=== PATIENT | female | born 1975 | race Caucasian/White ===

== ENCOUNTER 2024-08-26 16:04 | Emergency (ER) | payer MEDICAID, SELFPAY ==
[2024-08-26] VITALS (16 sets, daily range): BP systolic 145–263; BP diastolic 87–134; PULSE 81–96; RESP 13–27; TEMP 36.6–36.7; O2SAT 89–99; BMI 32.5
--- NOTE | 2024-08-26 16:11 | HMH.EDGENADL ---
Discharge Plan Disposition Patient Disposition: Home, Self-Care Prescriptions Prescriptions: No Action albuterol sulfate 1.25 mg/3 mL solution for nebulization 1.25 mg inhalation Q4-6H PRN albuterol sulfate [Ventolin HFA] 90 mcg/actuation HFA aerosol inhaler 2 puff inhalation Q6H PRN loratadine 10 mg tablet 10 mg PO DAILY Trelegy Ellipta 100-62.5-25 mcg blister with device 1 inh inhalation DAILY losartan 25 mg tablet 25 mg PO DAILY Qty: 30 2RF Referrals Follow up/Referrals: Mae De La Cruz APRN [Primary Care Provider] - See instructions Franklin Polanco MD [Staff Physician] - See instructions Activity Restrictions/Add. Instructions Additional Instructions/Restrictions: Please follow-up with the cardiology clinic tomorrow at 2 PM. If you have any new or worsening signs or symptoms return to the ER as needed. Clinical Impressions Clinical Impression: Hypertension, uncontrolled Print Language Print Language: [place] Discharge ED Provider: Severino Sherwood General Adult HPI <JESÚS Avila - Last Filed: 08/26/24 18:32> General Chief complaint: Recheck/Abnormal Lab/Rx Stated complaint: blood pressure high Doctor sent her Time Seen by Provider: 08/26/24 16:10 History of Present Illness HPI narrative: Patient presents from primary care provider for evaluation of high blood pressure. Patient had a follow-up appointment with her PCP today for breathing problems and it was noted that her blood pressure was high. Her PCP sent her to the ER for evaluation. Patient herself is asymptomatic she has no chest pain no shortness of breath no fever chills hemoptysis hematochezia melena nausea vomit diarrhea. She is not currently on a blood pressure medicine regimen Related Data Home Medications ?Medication ?Instructions ?Recorded ?Confirmed albuterol sulfate 1.25 mg/3 mL 1.25 mg inhalation Q4-6H PRN 08/27/24 08/27/24 solution for nebulization albuterol sulfate 90 mcg/actuation 2 puff inhalation Q6H PRN 08/27/24 08/27/24 aerosol inhaler (Ventolin HFA) fluticasone fur. 100 mcg-umeclid 1 inh inhalation DAILY 08/27/24 08/27/24 62.5 mcg-vilant 25 mcg inhalat.powder (Trelegy Ellipta) loratadine 10 mg tablet 10 mg PO DAILY 08/27/24 08/27/24 Previous Rx's ?Medication ?Instructions ?Recorded losartan 25 mg tablet 25 mg PO DAILY #30 tabs 08/27/24 Allergies Allergy/AdvReac Type Severity Reaction Status Date / Time No Known Allergies Allergy Verified 08/27/24 14:29 PFS <JESÚS Avila - Last Filed: 08/26/24 18:32> [facility] Disclaimer: The information contained in this section may have been updated after the patient was seen, as this information can be updated by other users. Medical History (Updated 08/27/24 @ 14:43 by Andrew Mart RN) Edema Dyspnea Social History Smoking Status: Current every day smoker alcohol intake: never current occupational status: employed Travel in the last 8 weeks: None Have you lived/traveled outside [place] in past 30 days?: No Contact w/someone who lives/traveled outside US past 30 days?: No Exposure to someone with infectious disease in past 14 days?: No Do you have a fever (greater than 100.4 F or 38 C)?: No Have you tested positive for COVID-19: No Exposed to someone with COVID-19 in past 14 days?: No Do you have a sore throat?: No Do you have a cough?: No Do you have any weakness?: No Do you have any diarrhea?: No Are you experiencing any unusual bleeding?: No Do you have any muscle aches/pain?: No Do you have any abdominal pain?: No Are you experiencing loss of taste or smell?: No <JESÚS Avila - Last Filed: 08/26/24 18:32> ROS Obtained: Yes Systems reviewed as appropriate & no additional complaints except as documented Physical Exam <JESÚS Avila - Last Filed: 08/26/24 18:32> General General appearance: alert and in no apparent distress Respiratory Respiratory exam: Present normal lung sounds bilaterally Cardiovascular Cardiovascular exam: Present regular rate Neurological Exam Neurological exam: Present alert and oriented X3 Medical Decision Making <JESÚS Avila - Last Filed: 08/26/24 18:32> Medical Records Medical records reviewed: Yes I reviewed the patient's medical records. Screening: Per USPSTF and CDC recommendations, given the prevalence of disease in our region, it is our hospital?s policy to screen for HIV and viral Hepatitis for all patients aged 18 and over and those with ongoing risk factors. Gurvinder Inquiry Pt receiving controlled substance: No Vital Signs: 08/26/24 16:20 08/26/24 16:22 08/26/24 16:30 Temperature 97.9 F Temperature Source Oral Pulse Rate 85 91 H Pulse Rate [Radial] 92 H Respiratory Rate 16 18 Blood Pressure Blood Pressure [Right Arm] 263/133 H Blood Pressure Mean Blood Pressure Mean [Right Arm] 176 Blood Pressure Source Blood Pressure Source [Right Arm] Automatic Cuff Blood Pressure Position Blood Pressure Position [Right Arm] Sitting 02 Sat by Pulse Oximetry 98 97 97 Oxygen Delivery Method Room Air 08/26/24 16:31 08/26/24 16:31 08/26/24 16:45 Temperature Temperature Source Pulse Rate 88 84 Pulse Rate [Radial] Respiratory Rate 14 24 Blood Pressure 249/134 H Blood Pressure [Right Arm] Blood Pressure Mean 152 Blood Pressure Mean [Right Arm] Blood Pressure Source Blood Pressure Source [Right Arm] Blood Pressure Position Blood Pressure Position [Right Arm] 02 Sat by Pulse Oximetry 97 95 Oxygen Delivery Method 08/26/24 17:00 08/26/24 17:01 08/26/24 17:01 Temperature Temperature Source Pulse Rate 82 82 Pulse Rate [Radial] Respiratory Rate 13 19 Blood Pressure 243/105 H Blood Pressure [Right Arm] Blood Pressure Mean 150 Blood Pressure Mean [Right Arm] Blood Pressure Source Blood Pressure Source [Right Arm] Blood Pressure Position Blood Pressure Position [Right Arm] 02 Sat by Pulse Oximetry 94 L 95 Oxygen Delivery Method 08/26/24 17:15 08/26/24 17:33 08/26/24 17:36 Temperature Temperature Source Pulse Rate 81 92 H 96 H Pulse Rate [Radial] Respiratory Rate 16 26 H 27 H Blood Pressure Blood Pressure [Right Arm] Blood Pressure Mean Blood Pressure Mean [Right Arm] Blood Pressure Source Blood Pressure Source [Right Arm] Blood Pressure Position Blood Pressure Position [Right Arm] 02 Sat by Pulse Oximetry 95 89 L 96 Oxygen Delivery Method 08/26/24 17:36 08/26/24 17:41 08/26/24 17:41 Temperature Temperature Source Pulse Rate 89 Pulse Rate [Radial] Respiratory Rate 20 Blood Pressure 236/126 H 262/121 H Blood Pressure [Right Arm] Blood Pressure Mean 139 160 Blood Pressure Mean [Right Arm] Blood Pressure Source Blood Pressure Source [Right Arm] Blood Pressure Position Blood Pressure Position [Right Arm] 02 Sat by Pulse Oximetry 95 Oxygen Delivery Method 08/26/24 17:45 08/26/24 18:00 08/26/24 18:01 Temperature Temperature Source Pulse Rate 90 89 86 Pulse Rate [Radial] Respiratory Rate 19 19 17 Blood Pressure Blood Pressure [Right Arm] Blood Pressure Mean Blood Pressure Mean [Right Arm] Blood Pressure Source Blood Pressure Source [Right Arm] Blood Pressure Position Blood Pressure Position [Right Arm] 02 Sat by Pulse Oximetry 95 96 96 Oxygen Delivery Method 08/26/24 18:01 08/26/24 18:30 08/26/24 19:03 Temperature 98.0 F Temperature Source Oral Pulse Rate 84 94 H Pulse Rate [Radial] Respiratory Rate 20 16 Blood Pressure 200/129 H 200/129 H 145/87 H Blood Pressure [Right Arm] Blood Pressure Mean 152 Blood Pressure Mean [Right Arm] Blood Pressure Source Automatic Cuff Blood Pressure Source [Right Arm] Blood Pressure Position Sitting Blood Pressure Position [Right Arm] 02 Sat by Pulse Oximetry 93 L Oxygen Delivery Method Room Air 08/26/24 19:03 Temperature 98.0 F Temperature Source Oral Pulse Rate Pulse Rate [Radial] 94 H Respiratory Rate 16 Blood Pressure Blood Pressure [Right Arm] 145/87 H Blood Pressure Mean Blood Pressure Mean [Right Arm] 106 Blood Pressure Source Blood Pressure Source [Right Arm] Automatic Cuff Blood Pressure Position Blood Pressure Position [Right Arm] Sitting 02 Sat by Pulse Oximetry 99 Oxygen Delivery Method Room Air Lab Data Lab results reviewed: Yes I reviewed the patient's lab results. Lab Results 08/26/24 16:36: WBC 8.4, RBC 4.66, Hgb 9.7 L, Hct 32.8 L, MCV 70.4 L, MCH 20.8 L, MCHC 29.6 L, RDW 18.1 H, Plt Count 427 H, MPV 8.3, Neut % (Auto) 82.8 H, Lymph % (Auto) 11.3, [place] % (Auto) 3.8, Eos % (Auto) 1.3, Baso % (Auto) 0.6, Neut # (Auto) 7.0, Lymph # (Auto) 1.0, [place] # (Auto) 0.3, Eos # (Auto) 0.1, Baso # (Auto) 0.1, Sodium 139, Potassium 4.2, Chloride 105, Carbon Dioxide 26, Anion Gap 12.2, BUN 12, Creatinine 0.70, Estimated Creat Clear 173, Estimated GFR 90, Est GFR ( Amer) 109, Glucose 96, Calcium 8.9, Total Bilirubin 0.4, AST 20, ALT 16, Alkaline Phosphatase 81, Troponin I < 0.01, NT-Pro-B Natriuret Pep 1410 H, Total Protein 7.7, Albumin 4.1, Globulin 3.6 H, Albumin/Globulin Ratio 1.1 08/26/24 17:36: Urine Color Yellow, Urine Appearance Clear, Urine pH 7.0, Ur Specific [place] 1.015, Urine Protein Negative, Urine Glucose (UA) Negative, Urine Ketones Negative, Urine Blood Negative, Urine Nitrate Negative, Urine Bilirubin Negative, Urine Urobilinogen 0.2, Ur Leukocyte Esterase Negative, Urine RBC None, Urine WBC Occasional, Ur Squamous Epith Cells 3-5, Urine Bacteria Trace 08/26/24 16:36 08/26/24 16:36 Orders (Tests/Meds): ED MEDICATIONS Discontinued Medications Generic Name Dose Route Start Last Admin Trade Name Freq PRN Reason Stop Dose Admin Carvedilol 12.5 mg 08/26/24 18:23 08/26/24 18:40 Carvedilol 12.5mg Tablet PO 08/26/24 18:24 12.5 mg ONCE ONE Administration Nifedipine 30 mg 08/26/24 18:23 08/26/24 18:37 Nifedipine 10mg Capsule PO 08/26/24 18:24 30 mg ONCE ONE Administration ORDERS Category Date Time Status Chest XR 2 view (NOT portable) [XR chest 2V] Stat Exams 08/26/24 16:19 Completed BNP [NT Pro Brain Natriuretic Pep.] Stat Lab 08/26/24 16:36 Completed CBC w/Auto Diff [Complete Blood Count Auto Diff] Stat Lab 08/26/24 16:36 Completed CMP [Comprehensive Metabolic Panel] Stat Lab 08/26/24 16:36 Completed Trop I [Troponin I] Stat Lab 08/26/24 16:36 Completed UA [Urinalysis and Microscopic] Stat Lab 08/26/24 17:36 Completed HEART Score History (anamnesis): Slightly suspicious ECG: Normal Age: 45-65 years Risk factors: 3 or more risk factors Troponin: </= normal limit HEART Score: 3 Medical Decision Narrative: In summary patient is a 48-year-old female who presents to the emergency department for evaluation of high blood pressure. Patient is significantly hypertensive on arrival with a blood pressure to 263/133 upon arrival, afebrile. Physical exam is unremarkable nonfocal including clear breath sounds no increased work of breathing no adventitious sounds heart sounds S1 is 2 regular rate and rhythm without murmurs Rubs or thrills. There is no dependent edema noted.. Differential diagnosis includes asymptomatic uncontrolled hypertension versus endorgan damage. Initial workup will be conducted with hematologic labs twelve-lead EKG plain film chest x-ray. Initial interventions deferred until initial workup complete. Initial workup interpreted by myself and her hematologic labs are sitting for normal white count hemoglobin hematocrit 9.7 and 32.8 respectively with an absolute neutrophil count of 7.0, her initial troponin is undetectable at 0.01 however she has an increased proBNP that is elevated at 1410 and the remainder of her hematologic labs are nonactionable. Mild pulm interpretation of her plain from chest x-ray shows no acute processes prior to radiology read. Patient remains asymptomatic and blood pressure still remains high with high systolic of 200 and diastolic in the 129. I then had interactive discussion with Dr. Vazquez of cardiology regarding patient presentation DOMINGUEZ and patient management. Dr. Vazquez recommends starting her on 12.5 mg of carvedilol now along with 30 mg of nifedipine now and he will see her in clinic tomorrow at 2 PM. Thus patient's blood pressure medications ordered and patient given instructions to follow-up with cardiology with strict return precautions for chest pain shortness of breath. Patient verbalized understanding and agreement. <Severino Sherwood MD - Last Filed: 08/27/24 16:49> Vital Signs: 08/26/24 16:20 08/26/24 16:22 08/26/24 16:30 Temperature 97.9 F Temperature Source Oral Pulse Rate 85 91 H Pulse Rate [Radial] 92 H Respiratory Rate 16 18 Blood Pressure Blood Pressure [Right Arm] 263/133 H Blood Pressure Mean Blood Pressure Mean [Right Arm] 176 Blood Pressure Source Blood Pressure Source [Right Arm] Automatic Cuff Blood Pressure Position Blood Pressure Position [Right Arm] Sitting 02 Sat by Pulse Oximetry 98 97 97 Oxygen Delivery Method Room Air 08/26/24 16:31 08/26/24 16:31 08/26/24 16:45 Temperature Temperature Source Pulse Rate 88 84 Pulse Rate [Radial] Respiratory Rate 14 24 Blood Pressure 249/134 H Blood Pressure [Right Arm] Blood Pressure Mean 152 Blood Pressure Mean [Right Arm] Blood Pressure Source Blood Pressure Source [Right Arm] Blood Pressure Position Blood Pressure Position [Right Arm] 02 Sat by Pulse Oximetry 97 95 Oxygen Delivery Method 08/26/24 17:00 08/26/24 17:01 08/26/24 17:01 Temperature Temperature Source Pulse Rate 82 82 Pulse Rate [Radial] Respiratory Rate 13 19 Blood Pressure 243/105 H Blood Pressure [Right Arm] Blood Pressure Mean 150 Blood Pressure Mean [Right Arm] Blood Pressure Source Blood Pressure Source [Right Arm] Blood Pressure Position Blood Pressure Position [Right Arm] 02 Sat by Pulse Oximetry 94 L 95 Oxygen Delivery Method 08/26/24 17:15 08/26/24 17:33 08/26/24 17:36 Temperature Temperature Source Pulse Rate 81 92 H 96 H Pulse Rate [Radial] Respiratory Rate 16 26 H 27 H Blood Pressure Blood Pressure [Right Arm] Blood Pressure Mean Blood Pressure Mean [Right Arm] Blood Pressure Source Blood Pressure Source [Right Arm] Blood Pressure Position Blood Pressure Position [Right Arm] 02 Sat by Pulse Oximetry 95 89 L 96 Oxygen Delivery Method 08/26/24 17:36 08/26/24 17:41 08/26/24 17:41 Temperature Temperature Source Pulse Rate 89 Pulse Rate [Radial] Respiratory Rate 20 Blood Pressure 236/126 H 262/121 H Blood Pressure [Right Arm] Blood Pressure Mean 139 160 Blood Pressure Mean [Right Arm] Blood Pressure Source Blood Pressure Source [Right Arm] Blood Pressure Position Blood Pressure Position [Right Arm] 02 Sat by Pulse Oximetry 95 Oxygen Delivery Method 08/26/24 17:45 08/26/24 18:00 08/26/24 18:01 Temperature Temperature Source Pulse Rate 90 89 86 Pulse Rate [Radial] Respiratory Rate 19 19 17 Blood Pressure Blood Pressure [Right Arm] Blood Pressure Mean Blood Pressure Mean [Right Arm] Blood Pressure Source Blood Pressure Source [Right Arm] Blood Pressure Position Blood Pressure Position [Right Arm] 02 Sat by Pulse Oximetry 95 96 96 Oxygen Delivery Method 08/26/24 18:01 08/26/24 18:30 08/26/24 19:03 Temperature 98.0 F Temperature Source Oral Pulse Rate 84 94 H Pulse Rate [Radial] Respiratory Rate 20 16 Blood Pressure 200/129 H 200/129 H 145/87 H Blood Pressure [Right Arm] Blood Pressure Mean 152 Blood Pressure Mean [Right Arm] Blood Pressure Source Automatic Cuff Blood Pressure Source [Right Arm] Blood Pressure Position Sitting Blood Pressure Position [Right Arm] 02 Sat by Pulse Oximetry 93 L Oxygen Delivery Method Room Air 08/26/24 19:03 Temperature 98.0 F Temperature Source Oral Pulse Rate Pulse Rate [Radial] 94 H Respiratory Rate 16 Blood Pressure Blood Pressure [Right Arm] 145/87 H Blood Pressure Mean Blood Pressure Mean [Right Arm] 106 Blood Pressure Source Blood Pressure Source [Right Arm] Automatic Cuff Blood Pressure Position Blood Pressure Position [Right Arm] Sitting 02 Sat by Pulse Oximetry 99 Oxygen Delivery Method Room Air Lab Data Lab Results 08/26/24 16:36: WBC 8.4, RBC 4.66, Hgb 9.7 L, Hct 32.8 L, MCV 70.4 L, MCH 20.8 L, MCHC 29.6 L, RDW 18.1 H, Plt Count 427 H, MPV 8.3, Neut % (Auto) 82.8 H, Lymph % (Auto) 11.3, [place] % (Auto) 3.8, Eos % (Auto) 1.3, Baso % (Auto) 0.6, Neut # (Auto) 7.0, Lymph # (Auto) 1.0, [place] # (Auto) 0.3, Eos # (Auto) 0.1, Baso # (Auto) 0.1, Sodium 139, Potassium 4.2, Chloride 105, Carbon Dioxide 26, Anion Gap 12.2, BUN 12, Creatinine 0.70, Estimated Creat Clear 173, Estimated GFR 90, Est GFR ( Amer) 109, Glucose 96, Calcium 8.9, Total Bilirubin 0.4, AST 20, ALT 16, Alkaline Phosphatase 81, Troponin I < 0.01, NT-Pro-B Natriuret Pep 1410 H, Total Protein 7.7, Albumin 4.1, Globulin 3.6 H, Albumin/Globulin Ratio 1.1 08/26/24 17:36: Urine Color Yellow, Urine Appearance Clear, Urine pH 7.0, Ur Specific [place] 1.015, Urine Protein Negative, Urine Glucose (UA) Negative, Urine Ketones Negative, Urine Blood Negative, Urine Nitrate Negative, Urine Bilirubin Negative, Urine Urobilinogen 0.2, Ur Leukocyte Esterase Negative, Urine RBC None, Urine WBC Occasional, Ur Squamous Epith Cells 3-5, Urine Bacteria Trace Orders (Tests/Meds): ED MEDICATIONS Discontinued Medications Generic Name Dose Route Start Last Admin Trade Name Christopherq PRN Reason Stop Dose Admin Carvedilol 12.5 mg 08/26/24 18:23 08/26/24 18:40 Carvedilol 12.5mg Tablet PO 08/26/24 18:24 12.5 mg ONCE ONE Administration Nifedipine 30 mg 08/26/24 18:23 08/26/24 18:37 Nifedipine 10mg Capsule PO 08/26/24 18:24 30 mg ONCE ONE Administration ORDERS Category Date Time Status Chest XR 2 view (NOT portable) [XR chest 2V] Stat Exams 08/26/24 16:19 Completed BNP [NT Pro Brain Natriuretic Pep.] Stat Lab 08/26/24 16:36 Completed CBC w/Auto Diff [Complete Blood Count Auto Diff] Stat Lab 08/26/24 16:36 Completed CMP [Comprehensive Metabolic Panel] Stat Lab 08/26/24 16:36 Completed Trop I [Troponin I] Stat Lab 08/26/24 16:36 Completed UA [Urinalysis and Microscopic] Stat Lab 08/26/24 17:36 Completed HEART Score HEART Score: 3 Medical Decision Narrative: In summary patient is a 48-year-old female who presents to the emergency department for evaluation of high blood pressure. Patient is significantly hypertensive on arrival with a blood pressure to 263/133 upon arrival, afebrile. Physical exam is unremarkable nonfocal including clear breath sounds no increased work of breathing no adventitious sounds heart sounds S1 is 2 regular rate and rhythm without murmurs Rubs or thrills. There is no dependent edema noted.. Differential diagnosis includes asymptomatic uncontrolled hypertension versus endorgan damage. Initial workup will be conducted with hematologic labs twelve-lead EKG plain film chest x-ray. Initial interventions deferred until initial workup complete. Initial workup interpreted by myself and her hematologic labs are sitting for normal white count hemoglobin hematocrit 9.7 and 32.8 respectively with an absolute neutrophil count of 7.0, her initial troponin is undetectable at 0.01 however she has an increased proBNP that is elevated at 1410 and the remainder of her hematologic labs are nonactionable. Mild pulm interpretation of her plain from chest x-ray shows no acute processes prior to radiology read. Patient remains asymptomatic and blood pressure still remains high with high systolic of 200 and diastolic in the 129. I then had interactive discussion with Dr. Vazquez of cardiology regarding patient presentation DOMINGUEZ and patient management. Dr. Vazquez recommends starting her on 12.5 mg of carvedilol now along with 30 mg of nifedipine now and he will see her in clinic tomorrow at 2 PM. Thus patient's blood pressure medications ordered and patient given instructions to follow-up with cardiology with strict return precautions for chest pain shortness of breath. Patient verbalized understanding and agreement. I was consulted by the GEORGINA, and we discussed the complexity of the problems being addressed.I approved the treatment and management plan for this patient?s care in the Emergency Department, thus performing a substantive portion of the medical decision making.Signed, Severino Sherwood MD [facility] <JESÚS Avila - Last Filed: 08/26/24 18:32> Critical Care Time Critical Care Time: Yes Attestation: On 08/26/24, the high probability of a clinically significant, sudden or life threatening deterioration of the following system(s) required my full and direct attention, intervention and personal management. The time I documented below is in addition to time spent performing reported procedures but includes the following listed in this critical care notation. Total Time Total Critical Care Time: 30
--- NOTE | 2024-08-26 16:19 | XR_ITS ---
PROCEDURE INFORMATION: Exam: XR Chest Exam date and time: 08/26/2024 5:17 PM Age: 48 years old Clinical indication: Shortness of breath; Additional info: Hypertensive emergency TECHNIQUE: Imaging protocol: Radiologic exam of the chest. Views: 2 views. COMPARISON: No relevant prior studies available. FINDINGS: Lungs: Clear lungs. Pleural spaces: No pneumothorax. No sizable pleural effusion. Heart/Mediastinum: No cardiomegaly. Bones/joints: Unremarkable. IMPRESSION: Clear lungs.
--- NOTE | 2024-08-26 16:20 | PC.NURSE ---
manual bp 246/158 per isa
--- NOTE | 2024-08-26 16:27 | ECG_ITS ---
APPROVED REPORT Exam: Resting ECG HR:83 bpm ECG Measurements Heart Rate 83 AXES VA 165 P 78 QRSd 80 QRS 76 QT 399 T 84 QTc 439 Conclusion SINUS RHYTHM NORMAL ECG UNCONFIRMED REPORT Electronically signed by : LAURO MAGAÑA, 08/28/2024 05:17:10
[2024-08-26 16:50] LABS: Basophils # 0.1 K/mm3 (0-0.2); Basophils % 0.6 % (0.1-2.0); Eosinophils # 0.1 K/mm3 (0.0-0.4); Eosinophils % 1.3 % (0.1-12.0); Hematocrit 32.8 % (37.0-47.0); Hemoglobin 9.7 g/dL (12.2-16.2); Lymphocytes % 11.3 % (10-50); Mean Corpuscular HGB Conc 29.6 g/dL (31.8-35.4); Mean Corpuscular Hemoglobin 20.8 pg (27.0-31.2); Mean Corpuscular Volume 70.4 fl (81-99); Mean Platelet Volume 8.3 fl (7.4-10.4); Monocytes # 0.3 K/mm3 (0.1-1.0); Monocytes % 3.8 % (1.7-9.3); Neutrophils % 82.8 % (37.0-80.0); Platelet Count 427 K/mm3 (142-424); Red Blood Count 4.66 M/mm3 (4.20-5.40); Red Cell Distribution Width 18.1 % (11.5-17.5); White Blood Count 8.4 K/mm3 (4.8-10.8)
[2024-08-26 17:09] LABS: Albumin Level 4.1 g/dl (3.5-5.0); Chloride 105 mmol/L (98-107); Potassium 4.2 mmoL/L (3.5-5.1); Sodium 139 mmol/L (136-145)
[2024-08-26 17:12] LABS: Alanine Aminotransferase 16 U/L (12-78); Albumin/Globulin Ratio 1.1 (1.1-1.8); Alkaline Phosphatase 81 U/L (38-126); Anion Gap 12.2 mEq/L (5-15); Aspartate Amino Transferase 20 U/L (14-36); Bilirubin,Total 0.4 mg/dl (0.2-1.3); Blood Urea Nitrogen 12 mg/dl (7-17); Calcium 8.9 mg/dl (8.4-10.2); Carbon Dioxide 26 mmol/L (22.0-30.0); Creatinine Clearance Estimated 173 mL/min (50-200); Estimated Glomerular Filt Rate 90 ml/min (>60); GFR (African American) 109 ML/MIN (>60); Globulin 3.6 g/dL (1.3-3.2); Glucose 96 mg/dl (74-100); Total Protein,Serum 7.7 g/dl (6.3-8.2)
[2024-08-26 17:27] LABS: NT Pro Brain Natriuretic Pep. 1410 pg/mL (0-125)
[2024-08-26 17:32] LABS: Troponin I < 0.01 ng/ml (0.00-0.034)
[2024-08-26 18:04] LABS: Microscopic, Urine URINE MICROSCOPIC (MICROSCOPIC)
[2024-08-26 18:21] LABS: Appearance,Urine CLEAR (Clear); Bilirubin,Urine Negative (Negative); Blood, Urine Negative (Negative); Color,Urine YELLOW (Yellow); Glucose,Urine (UA) Negative (Negative); Ketones,Urine Negative (Negative); Leukocyte Esterase,Urine Negative (Negative); Nitrate,Urine Negative (Negative); Protein,Urine Negative (Negative); Specific Gravity, Urine 1.015 (1.005-1.030); Urobilinogen,Urine 0.2 EU/dl (0.2)
[2024-08-26] MEDS: NIFEdipine 10MG CAPSULE 30 MG PO (18:37)
[2024-08-26] MEDS: CARVEDILOL 12.5MG TABLET 12.5 MG PO (18:40)
[2024-08-26 19:18] LABS: WBC,Urine Occasional #/hpf (0-3)
[2024-08-26 19:19] LABS: Bacteria,Urine Trace /lpf
== END 2024-08-26 19:04 | disposition home or self-care (01) ==
PROVIDERS: Physician Assistant; Emergency Provider Emergency Medicine; PCP Nurse Practitioner Family
DX: I10 Essential (primary) hypertension (principal)
CPT/HCPCS: 71046; 80053; 81001; 83880; 84484; 85025; 93005; 99284

== ENCOUNTER 2024-08-27 15:02 | Outpatient (CLI) | payer MEDICAID, SELFPAY ==
[2024-08-27 15:57] LABS: Basophils # 0.1 K/mm3 (0-0.2); Basophils % 0.7 % (0.1-2.0); Eosinophils # 0.1 K/mm3 (0.0-0.4); Eosinophils % 1.2 % (0.1-12.0); Hematocrit 34.1 % (37.0-47.0); Hemoglobin 9.9 g/dL (12.2-16.2); Lymphocytes # 1.1 K/mm3 (0.7-4.5); Lymphocytes % 14.2 % (10-50); Mean Corpuscular Hemoglobin 20.5 pg (27.0-31.2); Mean Corpuscular Volume 70.5 fl (81-99); Mean Platelet Volume 8.6 fl (7.4-10.4); Monocytes # 0.3 K/mm3 (0.1-1.0); Monocytes % 4.5 % (1.7-9.3); Platelet Count 505 K/mm3 (142-424); Red Blood Count 4.84 M/mm3 (4.20-5.40); Red Cell Distribution Width 18.3 % (11.5-17.5); White Blood Count 7.6 K/mm3 (4.8-10.8)
[2024-08-27 16:16] LABS: Albumin Level 3.9 g/dl (3.5-5.0); Chloride 106 mmol/L (98-107); Potassium 4.3 mmoL/L (3.5-5.1); Sodium 140 mmol/L (136-145)
[2024-08-27 16:19] LABS: Alanine Aminotransferase 15 U/L (12-78); Alkaline Phosphatase 86 U/L (38-126); Anion Gap 11.3 mEq/L (5-15); Aspartate Amino Transferase 18 U/L (14-36); Bilirubin,Direct 0.1 mg/dl (0.0-0.4); Bilirubin,Indirect 0.2 mg/dL (0.0-0.9); Bilirubin,Total 0.3 mg/dl (0.2-1.3); Bilirubin,Unconjugated 0.2 mg/dL (0.0-1.1); Blood Urea Nitrogen 12 mg/dl (7-17); Calcium 9.2 mg/dl (8.4-10.2); Carbon Dioxide 27 mmol/L (22.0-30.0); Cholesterol 193 mg/dl (140-200); Estimated Glomerular Filt Rate 77 ml/min (>60); GFR (African American) 93 ML/MIN (>60); Glucose 96 mg/dl (74-100); Total Protein,Serum 7.1 g/dl (6.3-8.2); Triglycerides 110 mg/dl (30-150); VLDL Cholesterol 22 mg/dL (0-40)
[2024-08-27 16:20] LABS: Chol/HDL Ratio 3.5 (1-3.5); HDL Cholesterol 55 mg/dl (40-60)
[2024-08-27 16:30] LABS: Direct LDL Cholesterol 106.59 mg/dL (100-129)
[2024-08-27 16:40] LABS: Free T4 (Free Thyroxine) 1.35 ng/dl (0.78-2.19)
[2024-08-27 16:51] LABS: Thyroid Stimulating Hormone 0.77 uIU/mL (0.465-4.68)
[2024-08-27 16:54] LABS: Hemoglobin A1C 5.1 % (4.0-6.0)
== END 2024-08-27 23:59 | disposition home or self-care (01) ==
LOC: LAB 15:02
PROVIDERS: PCP Nurse Practitioner Family; Visit Provider Nurse Practitioner
DX: R60.9 Edema, unspecified (principal); R06.00 Dyspnea, unspecified; I10 Essential (primary) hypertension
CPT/HCPCS: 36415; 80048; 80061; 80076; 83036; 83735; 84439; 84443; 85025

== ENCOUNTER 2024-09-12 12:49 | Outpatient (CLI) | payer MEDICAID, SELFPAY ==
--- NOTE | 2024-09-12 | CA_ITS ---
APPROVED REPORT EXAM: Comprehensive 2D, Doppler, and color-flow Echocardiogram Healthcare Associate: Mariangel Marie RVT Ht: 5 ft 11 in Wt: 250lbs BSA: 2.32 BP: 130/86 mmHg Indications: EDEMA,DYSPENA,HTN,SMOKER 2D Dimensions IVSd 1.17 cm F: 0.6-1.0 LVEF (Visual) 52.20 % PWd 1.24 cm F: 0.6 - 1.0 LA Volume 35.30 mL LVDd 5.05 cm F: 3.9 - 5.3 LA Volume Index 15.22 mL/m2 (M/F) 16-34 LVDs 3.69 cm F: 2.2 - 3.5 M-Mode Dimensions LA Diam 3.64 cm (1.9-4.0) TAPSE 2.21 (<1.7) LV Diastology E Decel Time 260 (160-240 msec) E/A Ratio 0.8 Aortic Valve RONALDO Index 1.94 cm2/m2 AoV Peak Faizan. 147.0 (50-130 cm/s) AO Peak GR. 8.60 mmHg AO Mean GR. 4.80 (<5 mmHg) AO VTI 30.2 (18-25 cm) RONALDO (VTI) 4.59 (2.5-4.5 cm2) Mitral Valve MV E Max Faizan. 65.0 (40-130 cm/s) MV A Velocity 82.0 (40-130 cm/s) E/A Ratio 0.79 MV PHT 76.0 ms Pulmonary Valve PV Peak Velocity 80.0 (50-150 cm/s) Tricuspid Valve TR P. Velocity 148.00 cm/s RAP Estimate 10.00 mmHg RVSP 18.70 mmHg Left Ventricle The left ventricle is normal size. The left ventricular systolic function is normal. The left ventricular ejection fraction is within the normal range. There is increased LV wall thickness. There is normal LV segmental wall motion. The left ventricular diastolic function is normal. LVEF is 55%. Right Ventricle The right ventricle is normal size. The right ventricular systolic function is normal. Atria The left atrium size is normal. The right atrium size is normal. There is no Doppler evidence of interatrial shunt. Aortic Valve The aortic valve opens well. There is no aortic valvular stenosis. Trace aortic regurgitation. Mitral Valve The mitral valve is normal in structure. No evidence of mitral valve stenosis. Trace mitral regurgitation. Tricuspid Valve Tricuspid valve is grossly normal in structure and function. Trace tricuspid regurgitation. There is insufficient TR jet to estimate RVSP. Pulmonic Valve The pulmonary valve is normal in structure. Trace pulmonic regurgitation. Great Vessels The aortic root is normal in size. IVC is normal in size and collapses >50% with inspiration. Pericardium There is no pericardial effusion. Other Information Study Quality: Fair Conclusion Normal biventricular systolic function. No significant valvular stenosis or regurgitation. Electronically signed by : Angy Polanco MD 09/15/2024 22:55:44
== END 2024-09-12 23:59 | disposition home or self-care (01) ==
LOC: RT 12:50
PROVIDERS: PCP Nurse Practitioner Family; Visit Provider Nurse Practitioner
DX: R06.00 Dyspnea, unspecified (principal); R60.9 Edema, unspecified
CPT/HCPCS: 93306

== ENCOUNTER 2025-04-21 09:37 | Observation (INO) | payer MEDICAID, SELFPAY ==
[2025-04-21] VITALS (14 sets, daily range): BP systolic 138–195; BP diastolic 77–110; PULSE 67–86; RESP 16–20; TEMP 36.6–36.9; O2SAT 95–100; BMI 35.4
--- NOTE | 2025-04-21 09:58 | PC.NURSE ---
patient arrived on the floor at 0955 by wheelchair
--- NOTE | 2025-04-21 10:10 | P.HP_ITS ---
<Statement entered by Alex Mott MD - 04/21/25 14:51> Rounded on patient after nurse practitioner. Personally examined and interviewed patient. Agree with exam findings and care plan as documented. History of Present Illness *Admission Date: 04/21/25 *Reason for visit:: Ischemic right great, 2nd, and 3rd toes *History of present illness: Ms. Diaz is a 49-year-old female who presented to her cardiology office today due to her toes being purple/blue on her right foot. She stated that her right great toe, second, and third were all purple since yesterday. She also endorses tingling and burning sensation. She has a primary medical history of COPD, tob acco use disorder, hypertension. She denies chest pain, abdominal pain, shortness of breath, nausea, vomiting, diarrhea. Patient was seen in the cardiology office and hospital medicine was consulted for admission due to ischemic right toes and plans for right lower extremity runoff today. [facility] Disclaimer: The information contained in this section may have been updated after the patient was seen, as this information can be updated by other users. Medical History Ischemic toe Edema Dyspnea Hypertension, uncontrolled Surgical History History of cholecystectomy History of tubal ligation Social History (Updated 04/21/25 @ 11:46 by Shivani Stewart RN) Smoking Status: Current every day smoker alcohol intake: never current occupational status: employed Travel in the last 8 weeks?: None Have you lived/traveled outside [place] in past 30 days?: No Contact w/someone who lives/traveled outside [place] past 30 days?: No Exposure to someone with infectious disease in past 14 days?: No Do you have a fever (greater than 100.4 F or 38 C)?: No Have you tested positive for COVID-19?: No Exposed to someone with COVID-19 in past 14 days?: No Do you have a sore throat?: No Do you have a cough?: No Do you have any weakness?: No Are you experiencing any nausea/vomitting?: No Do you have any diarrhea?: No Are you experiencing any unusual bleeding?: No Do you have any muscle aches/pain?: No Do you have any abdominal pain?: No Are you experiencing loss of taste or smell?: No Review of Systems Constitutional Constitutional: Denies fatigue, Denies fever(s) and Denies weakness Eyes Eyes: Denies blurry vision *Cardiovascular Cardiovascular: Denies chest pain, Denies dyspnea and Denies palpitations *Respiratory Respiratory: Denies cough and Denies dyspnea *Gastrointestinal Gastrointestinal: Denies diarrhea, Denies nausea and Denies vomiting *Genitourinary Genitourinary: Denies difficulty voiding and Denies dysuria *Musculoskeletal Comments: Endorses right foot/toe coldness/tingling *Neurologic Neurologic: Denies weakness Endocrine Endocrine: Denies fatigue and Denies palpitations Meds Home Medications and Allergies Home Medications ?Medication ?Instructions ?Recorded ?Confirmed ?Type albuterol sulfate 90 mcg/actuation 2 puff inhalation Q 6HP PRN 08/27/24 04/21/25 History aerosol inhaler (Ventolin HFA) Shortness Of Breath losartan 100 mg tablet 100 mg PO DAILY #30 tabs 04/21/25 Rx hydralazine 25 mg tablet 25 mg PO TIDP PRN BP > 180 S YSTOLIC 04/21/25 04/21/25 History umeclidinium 62.5 mcg-vilanterol 1 ea inhalation DAILY 04/21/25 04/21/25 History 25 mcg/actuation powdr for inhalation (Anoro Ellipta) New Prescriptions to Start Prescriptions: Allergies Allergy/AdvReac Type Severity Reaction Status Date / Time No Known Allergies Allergy Verified 04/21/25 08:57 Exam Data for Last 24 hours Vital signs and Labs for Last 24 Hours: Temp Pulse Resp BP Pulse Ox O2 Del Method 98.4 F 79 20 183/100 H 98 Room Air 04/21/25 10:07 04/21/25 10:07 04/21/25 10:07 04/21/25 10:07 04/21/25 10:07 04/21/25 10:09 Constitutional Constitutional: no acute distress, obese and cooperative *Routine HEENT Exam Head: Present normocephalic Eye: Present EOMI and PERRL ENT: Present mucous membranes moist *Routine Neck Exam Neck: Present supple; Absent lymphadenopathy *Routine Respiratory Exam Respiratory: Present CTA bilaterally *Routine Cardiovascular Exam Cardiovascular: Present RRR *Routine Abdominal Exam Abdominal: Present soft and normoactive bowel sounds; Absent tenderness *Routine Rectal Exam Rectal:: deferred *Routine Genitalia Exam Genitalia:: deferred *Routine Extremities Exam Extremities: Present cyanosis (Right great toe, second, third) and extremity cold to touch (Right great toe, second, third); Absent clubbing or edema *Routine Skin Exam Skin: Present warm; Absent rash *Routine Neurological Exam Neurological: Present alert and oriented X3 Assessment and Plan *Assessment and plan (1) Ischemic toe: Status: Acute Category: Medical Code(s): I99.8 - Other disorder of circulatory system (2) Malignant hypertension: Status: Acute Category: Medical Code(s): I10 - Essential (primary) hypertension (3) Cold extremities: Status: Acute Category: Medical Code(s): R20.9 - Unspecified disturbances of skin sensation Plan Ms. Diaz is a 49-year-old female who presented to her cardiology office today due to her toes being purple/blue on her right foot. She stated that her right great toe, second, and third were all purple since yesterday. She also endorses tingling and burning sensation. She has a primary medical history of COPD, tobacco use disorder, hypertension. She denies chest pain, abdominal pain, shortness of breath, nausea, vomiting, diarrhea. Patient was seen in the cardiology office and hospital medicine was consulted for admission due to ischemic right toes and plans for right lower extremity runoff today. I agreed to admit the patient, plan of care as follows: #Ischemic right foot great toe, second toe, third toe ?Patient endorses coldness, pain, tingling in right toes. She states that it has been intermittent but has progressively gotten worse. She was seen by Lisa García NP in the cardiology office who recommended hospital admission for right lower extremity runoff and heparin drip. Patient was admitted to the medical surgical floor with cardiology consultation. Heparin drip started, patient made n.p.o. for right lower extremity runoff. ?She has remained hemodynamically stable, nontoxic-appearing. Lab work was significant for hemoglobin of 10.2, appears chronic. No electrolyte abnormalities, normal kidney function, no leukocytosis. ?Pain medication ordered as needed, morphine 2 mg every 4 hours, [place] 5/325 mg every 6 hours, Tylenol 650 mg every 6 hours as needed for mild to severe pain. Monitoring for toxicity. #Hypertension ?Patient does endorse hypertension for which she takes losartan 100 mg daily and hydralazine 25 mg 3 times daily as needed for systolic greater than 180. She states she did take her medication this morning. ?Will resume home medication. #COPD ? Patient stable on room air, will resume daily Anoro inhaler. Lungs CTA on exam. Full code VTE?heparin drip Ambulate as tolerated N.p.o. for procedure
[2025-04-21 10:31] LABS: Hematocrit 36.4 % (37.0-47.0); Hemoglobin 10.2 g/dL (12.2-16.2); Immature Granulocytes % 0.4 %; Mean Corpuscular HGB Conc 28.0 g/dL (31.8-35.4); Mean Corpuscular Hemoglobin 19.4 pg (27.0-31.2); Mean Corpuscular Volume 69.3 fl (81-99); Nucleated Red Blood Cells % 0 %; Platelet Count 391 K/mm3 (142-424); Red Blood Count 5.25 M/mm3 (4.20-5.40); Red Cell Distribution Width-SD 46.8 fL; White Blood Count 8.3 K/mm3 (4.8-10.8)
[2025-04-21] MEDS: NICOTINE 21MG/24HR PATCH 21 MG TD (10:35)
[2025-04-21] MEDS: HEPARIN SODIUM 5,000 UNIT/ML VIAL 10000 UNIT IV (10:35)
[2025-04-21] MEDS: HEPARIN 25,000 UNITS/D5W 500 ML 40 UNIT IV (10:37)
[2025-04-21 10:45] LABS: Albumin Level 4.1 g/dl (3.5-5.0); Chloride 102 mmol/L (98-107); Sodium 136 mmol/L (136-145)
[2025-04-21 10:46] LABS: Potassium 4.6 mmoL/L (3.5-5.1)
[2025-04-21 10:48] LABS: Alanine Aminotransferase 12 U/L (12-78); Albumin/Globulin Ratio 1.2 (1.1-1.8); Alkaline Phosphatase 59 U/L (38-126); Anion Gap 11.6 mEq/L (5-15); Aspartate Amino Transferase 32 U/L (14-36); Bilirubin,Total 0.5 mg/dl (0.2-1.3); Blood Urea Nitrogen 8 mg/dl (7-17); Carbon Dioxide 27 mmol/L (22.0-30.0); Creatinine,Serum 0.70 mg/dl (0.52-1.04); Estimated Glomerular Filt Rate 90 ml/min (>60); GFR (African American) 109 ML/MIN (>60); Globulin 3.3 g/dL (1.3-3.2); Total Protein,Serum 7.4 g/dl (6.3-8.2)
[2025-04-21 10:49] LABS: Calcium 8.8 mg/dl (8.4-10.2); Glucose 90 mg/dl (74-100); Magnesium 2.1 mg/dl (1.6-2.3)
--- NOTE | 2025-04-21 11:06 | P.CONPHA_ITS ---
[facility] Pharmacy Heparin Dosing Demographic Data Admission date:: 04/21/25 Date: 04/21/25 Time: 11:06 Allergies Allergy/AdvReac Type Severity Reaction Status Date / Time No Known Allergies Allergy Verified 04/21/25 08:57 Height: 1.8 m Weight: 118 kg Indication Medication therapy:: Heparin Current Indications:: ISCHEMIC TOE Current Active Problems (Updated 04/21/25 @ 10:02 by Lisa García APRN) Cold extremities (Acute) Malignant hypertension (Acute) Ischemic toe (Acute) CVA?: No Bleeding problem?: No Kidney disease?: No [place]?: No Desired PTT range:: 50-75 seconds Labs Anticoagulation Lab Results:: 04/21/25 10:25 Hgb 10.2 L Hct 36.4 L Plt Count 391 Monitoring Dose Monitor 1: Date: 04/21/25 Time: 10:30 Infusion Rate:: HEPARIN 53670 UNIT BOLUS, HEPARIN DRIP 2000 UNITS/HR. Comment:: HEPARIN BOLUS GIVEN PRIOR TO PTT DRAW. INITIAL DRAW DID NOT HAVE ENOUGH BLOOD. Dose Monitor 2: Date: 04/21/25 Time: 12:30 PTT Result:: 146.3 Infusion Rate:: CONTINUE WITH HEPARIN 2000 UNITS/HR Core Measures Is INR > or = 2 at discharge?: No Most Recent Labs:: Laboratory Results - last 24 hr 04/21/25 10:25: WBC 8.3, RBC 5.25, Hgb 10.2 L, Hct 36.4 L, MCV 69.3 L, MCH 19.4 L, MCHC 28.0 L, RDW 19.7 H, Plt Count 391, MPV 8.7, Neut % (Auto) 80.6 H, Lymph % (Auto) 12.4, Wright % (Auto) 4.3, Eos % (Auto) 1.3, Baso % (Auto) 1.0, Neut # (Auto) 6.7, Lymph # (Auto) 1.0, Wright # (Auto) 0.4, Eos # (Auto) 0.1, Baso # (Auto) 0.1, Sodium 136, Potassium 4.6, Chloride 102, Carbon Dioxide 27, Anion Gap 11.6, BUN 8, Creatinine 0.70, Estimated GFR 90, Est GFR ( Amer) 109, Glucose 90, Calcium 8.8, Magnesium 2.1, Total Bilirubin 0.5, AST 32, ALT 12, Alkaline Phosphatase 59, Total Protein 7.4, Albumin 4.1, Globulin 3.3 H, Albumin/Globulin Ratio 1.2 If INR was < than 2.0 why was therapy stopped?: STENT PLACED, XARELTO STARTED Were Heparin and Warfarin started on the same day?: No If not, why?: XARELTO
[2025-04-21 11:24] LABS: INR 0.95 (0.9-1.1); Prothrombin Time 10.6 seconds (10.1-12.5)
[2025-04-21 11:45] LABS: PTT Heparin (inpatient only) > 200.0 Seconds (50-75)
--- NOTE | 2025-04-21 12:09 | IR_ITS ---
APPROVED REPORT Patient Location: Inpatient Instrument Lens Grinder: KESHA Garcia RT (R) PROCEDURES Pigtail catheter placement in the abdominal aorta Abdominal aortography Positioning the cath in the abdominal aorta Bilateral iliofemoral runoff Catheter placement in the right superficial femoral artery Right superficial femoral artery selective angiogram Bare-metal stent deployment to the right superficial femoral artery INDICATION Hickman claudication class V, Limb threatening ischemia, Atherosclerotic plaque in the right superficial femoral artery, Acute thrombosis to the right great toe Informed consent was obtained prior to the procedure. COMPLICATIONS NONE Estimated Blood Loss: LESS THAN 10 ML TECHNIQUE 1% lidocaine used to anesthetize the left femoral groin. The left femoral artery was accessed via the Seldinger technique. A 5 Emir[place] sheath is placed in the left femoral artery and a pigtail catheter was placed under fluoroscopic guidance into the abdominal aorta where abdominal aortography was performed. The catheter was then repositioned and bilateral iliofemoral was performed. Following this a rim catheter was placed in the abdominal aorta and used to cannulate the right common iliac artery followed by an advantage wire which was placed distally into the right SFA. The rim catheter was advanced and selective angiography of the right superficial femoral artery was performed. At this point therapeutic Was administered and the wire was used to traverse the occlusion of the right superficial femoral artery. A 7 mm x 20 mm bare-metal self-expanding stent was deployed followed by a 6 mm x 20 mm balloon used to post dilate the area at 12 blossom. Excellent angiograph results were obtained. Following vascularization repeat angiography demonstrated wide patency of the right superficial femoral artery with three-vessel runoff into the foot on the right side. At the end the procedure the apparatus was removed the groin is reprepped closure change sheath was removed and hemostasis was achieved using Perclose device patient was transferred to the postoperative care in stable condition ANGIOGRAPHIC RESULTS Abdominal aorta is patent Bilateral common internal and external iliac arteries are patent Lateral common femoral arteries are patent Bilateral profunda femoris arteries are patent Left superficial femoral artery popliteal arteries are patent with three-vessel runoff below the knee on the left side Right superficial femoral artery has a 90% stenosis in Ferdinand's canal as it turns into the popliteal artery. The popliteal artery is then widely patent with three-vessel runoff below the knee on the right side. Initially there was slow flow prior to revascularization however after revascularization the runoff was normal into the right foot IMPRESSION Acute plaque rupture of the right superficial femoral artery causing limb threatening ischemia with likely embolization into the great toe creating acute lower extremity thrombosis Successful bare-metal stent deployment to the right superficial femoral artery critical stenosis reduced to 0% with 1 bare-metal self-expanding stent PLAN 1. Xarelto 2.5 twice daily plus aspirin 81 mg daily 2. Recommend cardiac evaluation as well as carotid artery ultrasound 3. LDL less than 55 to be achieved at high intensity statin 4. Avoidance of tobacco products 5. Risk factor modification Electronically signed by : Juan Vazquez MD 04/21/2025 14:34:14
[2025-04-21] MEDS: HYDROCODONE/APAP 5/325 MG TABLET 1 TAB PO ×2 (12:52→20:09)
[2025-04-21] MEDS: LIDOCAINE 1% 10ML MDV 10 ML IJ (13:19)
[2025-04-21] MEDS: HEPARIN 1,000 UNITS/500ML NS (CATH LAB) 3000 UNIT IV (13:19)
[2025-04-21 13:20] LABS: PTT Heparin (inpatient only) 146.3 Seconds (50-75)
[2025-04-21] MEDS: 0.9 % SODIUM CHLORIDE 500 ML 25 ML IV (13:20)
--- NOTE | 2025-04-21 14:26 | HMH.PHAINT1 ---
Pharmacy Intervention Comments: MEDICATION RECONCILIATION COMPLETED ON PATIENT USING EXTERNAL FILL HISTORY FROM PHARMACY. -SLADE OZUNA, JULIUSD
[2025-04-21] MEDS: MIDAZOLAM HCL 1MG/ML 5ML VIAL 1 MG IV (14:28)
[2025-04-21] MEDS: HEPARIN 1,000 UNITS/ML 10ML VIAL (CATH LAB) 5000 UNIT IV (14:29)
[2025-04-21] MEDS: FENTANYL 100MCG/2ML VIAL 50 MCG IV (14:29)
--- NOTE | 2025-04-21 14:43 | SUR.PHASEII ---
patient recovered on cath table
[2025-04-21] MEDS: ASPIRIN 325MG TABLET 325 MG PO (14:47)
[2025-04-21 15:01] LABS: CATHL Activated Clotting Time 330 SEC (74-125)
[2025-04-21] MEDS: IOHEXOL-240 100ML BOTTLE 220 ML IV (15:16)
[2025-04-21] MEDS: ACETAMINOPHEN 325MG TAB 650 MG PO (15:39)
[2025-04-21] MEDS: MORPHINE 2MG/ML SYRINGE 2 MG IV ×2 (15:57→19:56)
[2025-04-21] MEDS: HYDRALAZINE HCL 25MG TABLET 25 MG PO (16:40)
--- NOTE | 2025-04-21 18:16 | PC.NURSE ---
pt resting in bed, family at bedside, call light in reach, left fem with dressing scant amount of blood on dressing that is old.
[2025-04-21] MEDS: IRBESARTAN 150MG TAB 150 MG PO (20:16)
[2025-04-22] VITALS: BP 150/92; PULSE 60; PULSE 73; RESP 16; TEMP 36.8; O2SAT 96
[2025-04-22] MEDS: MORPHINE 2MG/ML SYRINGE 2 MG IV (00:30)
[2025-04-22] MEDS: HYDROCODONE/APAP 5/325 MG TABLET 1 TAB PO ×2 (02:16→09:10)
[2025-04-22 04:00] VITALS: BP 142/78; PULSE 64; PULSE 75; RESP 17; TEMP 36.6; O2SAT 97; BMI 36.4
--- NOTE | 2025-04-22 04:00 | PC.NURSE ---
Pt. is alert and orientated x 4. Pt. is on room air. Pt. was admitted for ischemia to right great toe, 2nd, 3rd toes Toes dusky in appearance, right great toe was cooler than other toes. 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 c/o pain 03/06 to start with . Pt. medicated per JUL. Pt. also very hypertensive. regular blood pressure medications restarted and blood pdressure has trended down . Throughout this shift right toes less dusky. right great toe still dusky but less than at start of shift, the 2nd and 3rd toes red with toenails dusky. Pt. up to bathroom with standby assist. Pt. states pain under control. Pt. has slept off and on this shift. Personal items and call hoffman in reach. Bed in low and locked position.
[2025-04-22 06:17] LABS: Hematocrit 32.5 % (37.0-47.0); Hemoglobin 9.6 g/dL (12.2-16.2); Immature Granulocytes % 0.3 %; Mean Corpuscular HGB Conc 29.5 g/dL (31.8-35.4); Mean Corpuscular Hemoglobin 20.5 pg (27.0-31.2); Mean Corpuscular Volume 69.4 fl (81-99); Nucleated Red Blood Cells % 0 %; Platelet Count 340 K/mm3 (142-424); Red Blood Count 4.68 M/mm3 (4.20-5.40); Red Cell Distribution Width-SD 47.7 fL; White Blood Count 7.5 K/mm3 (4.8-10.8)
[2025-04-22] MEDS: UMECLIDINIUM/VILANTEROL 62.5/25MCG INHALER 1 PUFF IH (06:36)
[2025-04-22 06:39] VITALS: O2SAT 99
[2025-04-22 07:30] LABS: Anion Gap 8.7 mEq/L (5-15); Blood Urea Nitrogen 10 mg/dl (7-17); Calcium 8.4 mg/dl (8.4-10.2); Carbon Dioxide 23 mmol/L (22.0-30.0); Chloride 104 mmol/L (98-107); Creatinine Clearance Estimated 144 mL/min (50-200); Creatinine,Serum 0.90 mg/dl (0.52-1.04); Estimated Glomerular Filt Rate 67 ml/min (>60); GFR (African American) 81 ML/MIN (>60); Glucose 92 mg/dl (74-100); Potassium 4.7 mmoL/L (3.5-5.1); Sodium 131 mmol/L (136-145)
[2025-04-22 07:58] VITALS: BP 155/77; PULSE 98; RESP 17; TEMP 36.6; O2SAT 98
[2025-04-22 08:00] VITALS: PULSE 90
--- NOTE | 2025-04-22 09:09 | P.DS_ITS ---
<Statement entered by Alex Mott MD - 04/22/25 10:15> Rounded on patient after nurse practitioner. Personally examined and interviewed patient. Agree with exam findings and care plan as documented. General Admission date:: 04/21/25 Discharge date: 04/22/25 HPI HPI HPI: Ms. Diaz is a 49-year-old female who presented to her cardiology office today due to her toes being purple/blue on her right foot. She stated that her right great toe, second, and third were all purple since yesterday. She also endorses tingling and burning sensation. She has a primary medical history of COPD, tobacco use disorder, hypertension. She denies chest pain, abdominal pain, shortness of breath, nausea, vomiting, diarrhea. Patient was seen in the cardiology office and hospital medicine was consulted for admission due to ischemic right toes and plans for right lower extremity runoff. Hospital Course Hospital Course Hospital Course: Ms. Diaz is a 49-year-old female who presented to her cardiology office on 04/21 due to her toes being purple/blue on her right foot. She stated that her right great toe, second, and third were all purple since yesterday. She also endorses tingling and burning sensation. She has a primary medical history of COPD, tobacco use disorder, hypertension. She denied chest pain, abdominal pain, shortness of breath, nausea, vomiting, diarrhea. Patient was seen in the cardiology office and hospital medicine was consulted for admission due to ischemic right toes and plans for right lower extremity runoff today. I agreed to admit the patient, hosptial course as follows: #Ischemic right foot great toe, second toe, third toe #Status post stenting to right superficial femoral artery #PAD #Hyperlipidemia ?Patient underwent iliofemoral runoff to assess right femoral artery. Patient was found to have acute plaque rupture of the right superficial femoral artery causing limb threatening ischemia with likely embolization into the great toe creating acute lower extremity thrombus. She had a bare-metal stent deployment to the right superficial femoral artery critical stenosis reduced to 0%. Postprocedure patient should start Xarelto 2.5 twice daily plus aspirin 81 mg daily. Goal LDL less than 55, patient was started on high intensity statin of Lipitor 80 mg at bedtime. Avoidance of tobacco products, smoking cessation discussed. Patient will follow-up in the cardiology office in 1 to 2 weeks. ?She continues to endorse intermittent tingling/pain in her right foot. Patient received Roby 5/325 every 6 hours as needed for severe pain. Patient will be discharged home with 3 days of pain medication as needed. Patient may also take Tylenol 650 every 6 hours. ?Patient was initially placed on a heparin drip prior to procedure, was discontinued postprocedure. Patient transition to Xarelto. Patient given loading dose of Plavix in Legislative Analyst postprocedure. ?Postop lab work stable, hemoglobin 9.6. Baseline appears to be between 9?10. No leukocytosis, sodium slightly low at 131, potassium within normal limits, kidney function within normal limits. Patient's LDL was 106 in 09/19, patient should have repeat lipid panel when fasting in approximately 2 weeks at postop appointment. #Hypertension ?Patient does endorse hypertension for which she takes losartan 100 mg daily and hydralazine 25 mg 3 times daily as needed for systolic greater than 180. She states she did take her medication this morning. Patient's blood pressure has been slightly elevated during admission, she states she checks it daily at home and it is typically no higher than systolic 130s. Patient should keep twice daily log of BPs for follow-up appointment. She does have hydralazine 25 mg as needed and takes it if needed. She should continue losartan 100 mg daily scheduled at home. #COPD ? Patient stable on room air, lungs CTA. Continue Anoro inhaler daily and albuterol inhaler as needed. #Tobacco use disorder ? Discussed with patient smoking cessation. Total time spent on discharge 32 minutes in counseling, documentation, chart review, and direct care with patient. Exam Data for Last 24 hours Vital signs and Labs for Last 24 Hours: Temp Pulse Resp BP Pulse Ox O2 Del Method 98 F 98 H 17 155/77 H 98 Room Air 04/22/25 07:58 04/22/25 07:58 04/22/25 07:58 04/22/25 07:58 04/22/25 07:58 04/22/25 07:58 Laboratory Results - last 24 hr 04/21/25 10:25: WBC 8.3, RBC 5.25, Hgb 10.2 L, Hct 36.4 L, MCV 69.3 L, MCH 19.4 L, MCHC 28.0 L, RDW 19.7 H, Plt Count 391, MPV 8.7, Neut % (Auto) 80.6 H, Lymph % (Auto) 12.4, [place] % (Auto) 4.3, Eos % (Auto) 1.3, Baso % (Auto) 1.0, Neut # (Auto) 6.7, Lymph # (Auto) 1.0, [place] # (Auto) 0.4, Eos # (Auto) 0.1, Baso # (Auto) 0.1, Sodium 136, Potassium 4.6, Chloride 102, Carbon Dioxide 27, Anion Gap 11.6, BUN 8, Creatinine 0.70, Estimated GFR 90, Est GFR ( Amer) 109, Glucose 90, Calcium 8.8, Magnesium 2.1, Total Bilirubin 0.5, AST 32, ALT 12, Alkaline Phosphatase 59, Total Protein 7.4, Albumin 4.1, Globulin 3.3 H, Albumin/Globulin Ratio 1.2 04/21/25 11:08: PT 10.6, INR 0.95, APTT > 200.0 H* 04/21/25 12:38: APTT 146.3 H* 04/21/25 15:32: Activated Clotting Time 330 H* 04/22/25 06:09: WBC 7.5, RBC 4.68, Hgb 9.6 L, Hct 32.5 L, MCV 69.4 L, MCH 20.5 L , MCHC 29.5 L, RDW 19.3 H, Plt Count 340, MPV 8.2, Neut % (Auto) 71.7, Lymph % (Auto) 19.2, [place] % (Auto) 5.6, Eos % (Auto) 2.3, Baso % (Auto) 0.9, Neut # (Auto) 5.4, Lymph # (Auto) 1.4, [place] # (Auto) 0.4, Eos # (Auto) 0.2, Baso # (Auto) 0.1, Sodium 131 L, Potassium 4.7, Chloride 104, Carbon Dioxide 23, Anion Gap 8.7, BUN 10, Creatinine 0.90 D, Estimated Creat Clear 144, Estimated GFR 67, Est GFR ( Amer) 81 D, Glucose 92, Calcium 8.4 Temp Pulse Resp BP Pulse Ox O2 Del Method 98 F 98 H 17 155/77 H 98 Room Air 04/22/25 07:58 04/22/25 07:58 04/22/25 07:58 04/22/25 07:58 04/22/25 07:58 04/22/25 07:58 Laboratory Results - last 24 hr 04/21/25 10:25: WBC 8.3, RBC 5.25, Hgb 10.2 L, Hct 36.4 L, MCV 69.3 L, MCH 19.4 L, MCHC 28.0 L, RDW 19.7 H, Plt Count 391, MPV 8.7, Neut % (Auto) 80.6 H, Lymph % (Auto) 12.4, [place] % (Auto) 4.3, Eos % (Auto) 1.3, Baso % (Auto) 1.0, Neut # (Auto) 6.7, Lymph # (Auto) 1.0, [place] # (Auto) 0.4, Eos # (Auto) 0.1, Baso # (Auto) 0.1, Sodium 136, Potassium 4.6, Chloride 102, Carbon Dioxide 27, Anion Gap 11.6, BUN 8, Creatinine 0.70, Estimated GFR 90, Est GFR ( Amer) 109, Glucose 90, Calcium 8.8, Magnesium 2.1, Total Bilirubin 0.5, AST 32, ALT 12, Alkaline Phosphatase 59, Total Protein 7.4, Albumin 4.1, Globulin 3.3 H, Albumin/Globulin Ratio 1.2 04/21/25 11:08: PT 10.6, INR 0.95, APTT > 200.0 H* 04/21/25 12:38: APTT 146.3 H* 04/21/25 15:32: Activated Clotting Time 330 H* 04/22/25 06:09: WBC 7.5, RBC 4.68, Hgb 9.6 L, Hct 32.5 L, MCV 69.4 L, MCH 20.5 L , MCHC 29.5 L, RDW 19.3 H, Plt Count 340, MPV 8.2, Neut % (Auto) 71.7, Lymph % (Auto) 19.2, [place] % (Auto) 5.6, Eos % (Auto) 2.3, Baso % (Auto) 0.9, Neut # (Auto) 5.4, Lymph # (Auto) 1.4, [place] # (Auto) 0.4, Eos # (Auto) 0.2, Baso # (Auto) 0.1, Sodium 131 L, Potassium 4.7, Chloride 104, Carbon Dioxide 23, Anion Gap 8.7, BUN 10, Creatinine 0.90 D, Estimated Creat Clear 144, Estimated GFR 67, Est GFR ( Amer) 81 D, Glucose 92, Calcium 8.4 I & O for Last 24 hours: Intake & Output 04/19/25 04/20/25 04/21/25 04/22/25 23:59 23:59 23:59 23:59 Intake Total 442.917 / 682.917 240 / 240 Output Total 200 / 200 0 / 0 Balance 242.917 / 482.917 240 / 240 Weight 118 kg 118.115 kg Intake & Output 04/19/25 04/20/25 04/21/25 04/22/25 23:59 23:59 23:59 23:59 Intake Total 442.917 / 682.917 240 / 240 Output Total 200 / 200 0 / 0 Balance 242.917 / 482.917 240 / 240 Weight 260 lb 2.327 oz 260 lb 6.4 oz Constitutional Constitutional: no acute distress, obese and cooperative *Routine HEENT Exam Head: Present normocephalic Eye: Present PERRL ENT: Present mucous membranes moist *Routine Neck Exam Neck: Present supple; Absent lymphadenopathy *Routine Respiratory Exam Respiratory: Present CTA bilaterally and normal respiratory effort; Absent accessory muscle use, wheezes or crackles *Routine Cardiovascular Exam Cardiovascular: Present RRR, Normal S1 and Normal S2; Absent murmur, gallop or rubs *Routine Abdominal Exam Abdominal: Present soft and normoactive bowel sounds; Absent tenderness or distended *Routine Rectal Exam Patient deferred: visual exam *Routine Exam Patient deferred: external exam *Routine Extremities Exam Extremities: Present full ROM and pulses intact; Absent edema Comments: Right great toe is purple in discoloration. Plantar aspect of digits 2 through 5 are also purplish in discoloration. No open wounds. *Routine Skin Exam Skin: Present intact; Absent erythema or wounds *Routine Neurological Exam Neurological: Present alert, oriented X3, vision grossly intact, hearing grossly intact and normal speech Routine Psychiatric Exam Psychiatric: Present normal affect and cooperative Results Data Completed and Pending Labs on day of discharge: Labs from last 24 hours 11/04/21/25 04/21/25 06:09 15:32 12:38 WBC 7.5 RBC 4.68 Hgb 9.6 L Hct 32.5 L MCV 69.4 L MCH 20.5 L MCHC 29.5 L RDW 19.3 H Plt Count 340 MPV 8.2 Neut % (Auto) 71.7 Lymph % (Auto) 19.2 [place] % (Auto) 5.6 Eos % (Auto) 2.3 Baso % (Auto) 0.9 Neut # (Auto) 5.4 Lymph # (Auto) 1.4 [place] # (Auto) 0.4 Eos # (Auto) 0.2 Baso # (Auto) 0.1 PT INR APTT 146.3 H* Activated Clotting Time 330 H* Sodium 131 L Potassium 4.7 Chloride 104 Carbon Dioxide 23 Anion Gap 8.7 BUN 10 Creatinine 0.90 D Estimated Creat Clear 144 Estimated GFR 67 Est GFR ( Amer) 81 D Glucose 92 Calcium 8.4 Magnesium Total Bilirubin AST ALT Alkaline Phosphatase Total Protein Albumin Globulin Albumin/Globulin Ratio 04/21/25 04/21/25 11:08 10:25 WBC 8.3 RBC 5.25 Hgb 10.2 L Hct 36.4 L MCV 69.3 L MCH 19.4 L MCHC 28.0 L RDW 19.7 H Plt Count 391 MPV 8.7 Neut % (Auto) 80.6 H Lymph % (Auto) 12.4 [place] % (Auto) 4.3 Eos % (Auto) 1.3 Baso % (Auto) 1.0 Neut # (Auto) 6.7 Lymph # (Auto) 1.0 [place] # (Auto) 0.4 Eos # (Auto) 0.1 Baso # (Auto) 0.1 PT 10.6 INR 0.95 APTT > 200.0 H* Activated Clotting Time Sodium 136 Potassium 4.6 Chloride 102 Carbon Dioxide 27 Anion Gap 11.6 BUN 8 Creatinine 0.70 Estimated Creat Clear Estimated GFR 90 Est GFR ( Amer) 109 Glucose 90 Calcium 8.8 Magnesium 2.1 Total Bilirubin 0.5 AST 32 ALT 12 Alkaline Phosphatase 59 Total Protein 7.4 Albumin 4.1 Globulin 3.3 H Albumin/Globulin Ratio 1.2 DS: Diagnosis Discharge Diagnosis (1) Ischemic toe: Status: Acute Code(s): I99.8 - Other disorder of circulatory system (2) Malignant hypertension: Status: Acute Code(s): I10 - Essential (primary) hypertension (3) Cold extremities: Status: Acute Code(s): R20.9 - Unspecified disturbances of skin sensation (4) Stenosis of superficial femoral artery: Status: Acute Code(s): I70.209 - Unspecified atherosclerosis of [place] arteries of extremities, unspecified extremity Problem details: S/p stent placement (5) Tobacco use disorder: Status: Acute Code(s): F17.200 - Nicotine dependence, unspecified, uncomplicated (6) PAD (peripheral artery disease): Status: Acute Code(s): I73.9 - Peripheral vascular disease, unspecified (7) Hyperlipidemia: Status: Acute Code(s): E78.5 - Hyperlipidemia, unspecified Meds Home Medications and Allergies Home Medications ?Medication ?Instructions ?Recorded ?Confirmed ?Type albuterol sulfate 90 mcg/actuation 2 puff inhalation Q 6HP PRN 08/27/24 04/21/25 History aerosol inhaler (Ventolin HFA) Shortness Of Breath losartan 100 mg tablet 100 mg PO DAILY #30 tabs 04/21/25 Rx hydralazine 25 mg tablet 25 mg PO TIDP PRN BP > 180 S YSTOLIC 04/21/25 04/21/25 H istory umeclidinium 62.5 mcg-vilanterol 1 ea inhalation DAILY 04/21/25 04/21/25 History 25 mcg/actuation powdr for inhalation (Anoro Ellipta) aspirin 81 mg tablet,delayed 81 mg PO DAILY 30 days #3 0 tabs 04/22/25 Rx release atorvastatin 40 mg tablet 80 mg (2 x 40 mg) PO HS 30 d ays 04/22/25 Rx #60 tabs hydrocodone 5 mg-acetaminophen 325 1 tab PO Q6HP PRN M oderate To 04/22/25 Rx mg tablet Severe Pain (4-10) 3 days #1 2 tabs rivaroxaban 2.5 mg tablet (Xarelto) 2.5 mg PO BID #60 tabs 04/22/25 Rx New Prescriptions to Start Prescriptions: hydrocodone-acetaminophen Ashley Kim aspirin Julio,Ashley atorvastatin Julio,Ashley rivaroxaban [Xarelto] Alex Mott Allergies Allergy/AdvReac Type Severity Reaction Status Date / Time No Known Allergies Allergy Verified 04/21/25 08:57 Discharge Plan Disposition Patient Disposition: Home, Self-Care Condition: Good Follow up Plan Follow up with: Josafat Montanez PA [Physician Marketing Operations Coordinator, Cardiology] - 1 week Mae De La Cruz APRN [Primary Care Provider, Medical] - Enter time for follow up Prescriptions/Medication Reconciliation: New atorvastatin 40 mg Tablet 80 mg PO HS 30 Days Qty: 60 0RF hydrocodone-acetaminophen 5-325 mg Tablet 1 tab PO Q6HP PRN (Reason: Moderate To Severe Pain (4-10)) 3 Days Qty: 12 0RF aspirin 81 mg Tablet,Delayed Release (Dr/Ec) 81 mg PO DAILY 30 Days Qty: 30 0RF rivaroxaban [Xarelto] 2.5 mg Tablet 2.5 mg PO BID Qty: 60 0RF Continued albuterol sulfate [Ventolin HFA] 90 mcg/actuation HFA aerosol inhaler 2 puff inhalation Q6HP PRN (Reason: Shortness Of Breath) umeclidinium-vilanterol [Anoro Ellipta] 62.5-25 mcg/actuation blister with device 1 ea inhalation DAILY losartan 100 mg tablet 100 mg PO DAILY Qty: 30 10RF hydralazine 25 mg tablet 25 mg PO TIDP PRN (Reason: BP > 180 SYSTOLIC) Problem Reconciliation Problems Reviewed?: Yes Patient Discharge Instructions ACTIVITY: Continue current activity and Ambulate as tolerated DIET: continue same diet Patient Instructions: DI for Malignant Hypertension, DI for Peripheral Vascular (Arterial) Disease Print Language: Barb[place] Providers Primary Care Provider: Mae De La Cruz Admit Provider: Alex Mott Attending Provider: Alex Mott
[2025-04-22] MEDS: IRBESARTAN 150MG TAB 150 MG PO (09:12)
[2025-04-22] MEDS: ASPIRIN EC 81MG TABLET 81 MG PO (09:13)
--- NOTE | 2025-04-22 09:22 | EXP.CARD.CON ---
History of Present Illness History of Present Illness Consult date: 04/22/25 Consult reason: known to you Chief complaint: toe pain History of present illness: 49-year-old white female without known prior cardiovascular disease presented as an outpatient with pain and purple discoloration of her right great toe and mild symptoms in the other 4 toes of the same foot. She was brought in for urgent revascularization. Was found to have occluded right SFA which was stented successfully. Patient did have collaterals. She was kept overnight for observation. This morning she reports her symptoms are improving. Her toe remains purple but she states much improved from the day prior. Vitals and labs are stable. We discussed DAPT and statin and she feels ready for discharge home. [facility] Disclaimer: The information contained in this section may have been updated after the patient was seen, as this information can be updated by other users. Medical History Ischemic toe Edema Dyspnea Hypertension, uncontrolled Surgical History History of cholecystectomy History of tubal ligation Social History Smoking Status: Current every day smoker alcohol intake: never current occupational status: employed Travel in the last 8 weeks?: None Have you lived/traveled outside [place] in past 30 days?: No Contact w/someone who lives/traveled outside US past 30 days?: No Exposure to someone with infectious disease in past 14 days?: No Do you have a fever (greater than 100.4 F or 38 C)?: No Have you tested positive for COVID-19?: No Exposed to someone with COVID-19 in past 14 days?: No Do you have a sore throat?: No Do you have a cough?: No Do you have any weakness?: No Are you experiencing any nausea/vomitting?: No Do you have any diarrhea?: No Are you experiencing any unusual bleeding?: No Do you have any muscle aches/pain?: No Do you have any abdominal pain?: No Are you experiencing loss of taste or smell?: No Review of Systems Constitutional Constitutional: Denies weakness Eyes Eyes: Denies loss of vision ENT Ears, Nose, Mouth, and Throat: Denies hearing loss *Cardiovascular Cardiovascular: Denies chest pain and Denies dyspnea *Respiratory Respiratory: Denies cough and Denies dyspnea *Gastrointestinal Gastrointestinal: Denies change in stool character, Denies nausea and Denies vomiting *Musculoskeletal Musculoskeletal: Denies muscle weakness Integumentary/Breasts Skin/Breast: Denies changing lesions *Neurologic Neurologic: Denies loss of vision and Denies weakness Exam Data for Last 24 hours Vital signs and Labs for Last 24 Hours: Temp Pulse Resp BP Pulse Ox O2 Del Method 98 F 98 H 17 155/77 H 98 Room Air 04/22/25 07:58 04/22/25 07:58 04/22/25 07:58 04/22/25 07:58 04/22/25 07:58 04/22/25 07:58 Laboratory Results - last 24 hr 04/21/25 10:25: WBC 8.3, RBC 5.25, Hgb 10.2 L, Hct 36.4 L, MCV 69.3 L, MCH 19.4 L, MCHC 28.0 L, RDW 19.7 H, Plt Count 391, MPV 8.7, Neut % (Auto) 80.6 H, Lymph % (Auto) 12.4, [place] % (Auto) 4.3, Eos % (Auto) 1.3, Baso % (Auto) 1.0, Neut # (Auto) 6.7, Lymph # (Auto) 1.0, [place] # (Auto) 0.4, Eos # (Auto) 0.1, Baso # (Auto) 0.1, Sodium 136, Potassium 4.6, Chloride 102, Carbon Dioxide 27, Anion Gap 11.6, BUN 8, Creatinine 0.70, Estimated GFR 90, Est GFR ( Amer) 109, Glucose 90, Calcium 8.8, Magnesium 2.1, Total Bilirubin 0.5, AST 32, ALT 12, Alkaline Phosphatase 59, Total Protein 7.4, Albumin 4.1, Globulin 3.3 H, Albumin/Globulin Ratio 1.2 04/21/25 11:08: PT 10.6, INR 0.95, APTT > 200.0 H* 04/21/25 12:38: APTT 146.3 H* 04/21/25 15:32: Activated Clotting Time 330 H* 04/22/25 06:09: WBC 7.5, RBC 4.68, Hgb 9.6 L, Hct 32.5 L, MCV 69.4 L, MCH 20.5 L, MCHC 29.5 L, RDW 19.3 H, Plt Count 340, MPV 8.2, Neut % (Auto) 71.7, Lymph % (Auto) 19.2, [place] % (Auto) 5.6, Eos % (Auto) 2.3, Baso % (Auto) 0.9, Neut # (Auto) 5.4, Lymph # (Auto) 1.4, [place] # (Auto) 0.4, Eos # (Auto) 0.2, Baso # (Auto) 0.1, Sodium 131 L, Potassium 4.7, Chloride 104, Carbon Dioxide 23, Anion Gap 8.7, BUN 10, Creatinine 0.90 D, Estimated Creat Clear 144, Estimated GFR 67, Est GFR ( Amer) 81 D, Glucose 92, Calcium 8.4 I & O for Last 24 hours: Intake & Output 04/19/25 04/20/25 04/21/25 04/22/25 23:59 23:59 23:59 23:59 Intake Total 442.917 / 682.917 240 / 240 Output Total 200 / 200 0 / 0 Balance 242.917 / 482.917 240 / 240 Weight 260 lb 2.327 oz 260 lb 6.4 oz Constitutional Constitutional: no acute distress and cooperative *Routine HEENT Exam Eye: Present PERRL *Routine Respiratory Exam Respiratory: Present CTA bilaterally; Absent accessory muscle use, wheezes or crackles *Routine Cardiovascular Exam Cardiovascular: Present RRR, Normal S1 and Normal S2; Absent murmur, gallop or rubs *Routine Abdominal Exam Abdominal: Present soft; Absent tenderness *Routine Extremities Exam Extremities: Present pulses intact; Absent cyanosis or edema Comments: Right great toe is purple in discoloration. Plantar aspect of digits 2 through 5 are also purplish in discoloration. The foot is warm. She has good capillary refill. No open wounds. *Routine Skin Exam Skin: Present intact; Absent erythema or wounds *Routine Neurological Exam Neurological: Present alert and oriented X3 Routine Psychiatric Exam Psychiatric: Present cooperative Meds Home Medications and Allergies Home Medications ?Medication ?Instructions ?Recorded ?Confirmed ?Type albuterol sulfate 90 mcg/actuation 2 puff inhalation Q6HP PRN 08/27/24 04/21/25 History aerosol inhaler (Ventolin HFA) Shortness Of Breath losartan 100 mg tablet 100 mg PO DAILY #30 tabs 12/15/24 04/21/25 Rx hydralazine 25 mg tablet 25 mg PO TIDP PRN BP > 180 SYSTOLIC 04/21/25 04/21/25 History umeclidinium 62.5 mcg-vilanterol 1 ea inhalation DAILY 04/21/25 04/21/25 History 25 mcg/actuation powdr for inhalation (Anoro Ellipta) aspirin 81 mg tablet,delayed 81 mg PO DAILY 30 days #30 tabs 04/22/25 Rx release atorvastatin 40 mg tablet 80 mg (2 x 40 mg) PO HS 30 days 04/22/25 Rx #60 tabs clopidogrel 75 mg tablet 75 mg PO DAILY 30 days #30 tabs 04/22/25 Rx hydrocodone 5 mg-acetaminophen 325 1 tab PO Q6HP PRN Moderate To 04/22/25 Rx mg tablet Severe Pain (4-10) 3 days #12 tabs New Prescriptions to Start Prescriptions: hydrocodone-acetaminophen Julio,Ashley aspirin Julio,Ashley atorvastatin Julio,Ashley clopidogrel Ashley Kim Allergies Allergy/AdvReac Type Severity Reaction Status Date / Time No Known Allergies Allergy Verified 04/21/25 08:57 Assessment and Plan *Assessment and plan (1) Ischemic toe: Status: Acute Category: Medical Code(s): I99.8 - Other disorder of circulatory system (2) Hypertension, uncontrolled: Status: Acute Category: Medical Code(s): I10 - Essential (primary) hypertension Plan PAD with acute right lower extremity ischemia - Presented with several days of worsening right great toe purple and painful - Successful revascularization of right SFA - On aspirin, Xarelto, high-dose statin - Advised on restrictions post groin stick for cath - She will need CV ischemia workup as an outpatient Htn - poorly controlled, 140-190 here - change losartan 100 mg to valsartan 320 mg at discharge - Keep twice daily blood pressure log and bring to office appointment Hyperlipidemia - LDL 106 in August - Will add high-dose statin due to her PAD, repeat labs outpatient - Not diabetic, A1c 5 point Tobacco - Recommend complete avoidance Obesity - Recommend aggressive weight loss via diet and exercise CAD stable for discharge home. She needs to keep twice daily blood pressure log and follow-up in our office in 2 weeks. Call sooner with any changes or concerns. CV DC medication: Aspirin 81 mg 1 p.o. daily Xarelto 2.5 mg 1 p.o. twice daily Atorvastatin 80 mg 1 p.o. nightly Valsartan 320 mg 1 p.o. daily
--- NOTE | 2025-04-27 12:53 | SW/DCPLANNER ---
Spoke with patient on the phone. Patient stated that her toes were still hurting. Patient stated that she is aware of her upcoming appointments. Patient stated that she was able to grape picker her new medicine from [facility]. Patient stated that she has no concerns or questions at this time. Kayleigh Llanos
== END 2025-04-22 10:55 | disposition home or self-care (01) ==
PROVIDERS: Internal Medicine; Admitting Provider Internal Medicine Adolescent Medicine; PCP Nurse Practitioner Family; Visit Provider Internal Medicine Adolescent Medicine
DX: I74.3 Embolism and thrombosis of arteries of the lower extremities (principal); I99.8 Other disorder of circulatory system; J44.9 Chronic obstructive pulmonary disease, unspecified; I10 Essential (primary) hypertension; E78.5 Hyperlipidemia, unspecified; F17.200 Nicotine dependence, unspecified, uncomplicated; E66.9 Obesity, unspecified; Z68.36 Body mass index [BMI] 36.0-36.9, adult; Z79.82 Long term (current) use of aspirin; Z79.01 Long term (current) use of anticoagulants; Z79.899 Other long term (current) drug therapy
CPT/HCPCS: 36415; 37267; 80048; 80053; 83735; 85025; 85347; 85610; 85730; 94640; 99152; 99153; C1725; C1760; C1766; C1769; C1876; C1894; G0378; J1200; J1644; J2003; J2250; J2270; J3010; J7040; Q9966